=== PATIENT | male | born 1985 | race Caucasian/White ===

== ENCOUNTER 2023-10-25 22:08 | Emergency (ER) | payer OTHER ==
[2023-10-25 22:34] VITALS: O2SAT 97
--- NOTE | 2023-10-25 23:54 | ED Physician Documentation ---
PD HPI UPPER EXT INJURY - Stated complaint Stated Complaint: L HAND FINGER LAC - Chief complaint Chief Complaint: Laceration - History obtained from History obtained from: Patient - Additonal information Additional information: HPI from patient. Patient is right hand dominant. Patient was at home preparing dinner (specifically cutting onions with a knife) when the knife slipped causing a laceration to the tip of his left ring finger. Denies numbness, weakness. His chief concern is not the extent of the injury but the persistence of bleeding even after applying a hemostatic agent (powder) at home. Patient says he is UTD on tetanus immunization PD PAST MEDICAL HISTORY - Past Medical History Past Medical History: Yes Cardiovascular: Hypertension Respiratory: None Neuro: None Endocrine/Autoimmune: None GI: None : None HEENT: None Psych: Depression Musculoskeletal: None Derm: None - Past Surgical History Past Surgical History: Yes Ortho: Other - Present Medications Home Medications: Ambulatory Orders Medication Instructions Recorded Confirmed Lisinopril [Zestril] 20 mg PO DAILY 10/25/23 Sertraline [Zoloft] 25 mg PO DAILY 10/25/23 - Allergies Allergies/Adverse Reactions: Allergies Allergy/AdvReac Type Severity Reaction Status Date / Time No Known Drug Allergies Allergy Verified 10/25/23 22:32 - Social History Does the pt smoke?: No Smoking Status: Never smoker Does the pt drink ETOH?: Yes Does the pt have substance abuse?: No - Immunizations Immunizations are current?: Yes - POLST Patient has POLST: No PD ED PE NORMAL - Vitals Vital signs reviewed: Yes - General General: Alert and oriented X 3, No acute distress PD ED PE EXPANDED - Extremities ROMEL UE/Hands Visual: 1 - laceration (1 cm length laceration with brisk, non-pulsatile bleeding. The defect is wedge-shaped and wound edges cannot be approximated as a result.) Results - Vitals Vitals: Vital Signs - 24 hr 10/25/23 10/26/23 22:27 00:52 Temperature 37.0 C Heart Rate 65 68 Respiratory 16 16 Rate Blood Pressure 124/72 122/75 O2 Saturation 97 97 Oxygen O2 Source Room air PD Medical Decision Making - ED course Complexity details: considered differential, d/w patient ED course: As noted under the physical exam (above), the laceration is wedge-shaped, preventing approximation of the wound edges. Thus, the plan is to allow the wound to heal by secondary intention. The depth is just enough to show a small amount of underlying adipose tissue. Initially, patient was being prepared for discharge after ED RN placed Surgifoam over the laceration followed by gauze and Coban wrap. However, the gauze and Coban rapidly had moderate amount of blood on them, evidencing ongoing bleeding. Thus, I reevaluated the patient, removed the dressing and the Surgifoam, placed finger tourniquet at the base of the finger (Tourni-Cot product) which effected complete hemostasis. Two layers of Dermabond (with adequate drying time between layers) placed on the wound not for wound closure but for hemostasis. After adequate drying time, the tourniquet was removed and bleeding did not reoccur. Patient instructed to follow-up with PCP within the next few days for reevaluation of the wound. Return precautions discussed. Departure - Departure Disposition: 01 Home, Self Care Clinical Impression: Laceration Condition: Good Instructions: ED Laceration Amputation Finger Tip Open Tx Follow-Up: ARABELLA Bhandari [Provider Group] Comments: Follow-up with your PCP at [facility] in 2 to 3 days for recheck of the wound. Discharge Date/Time: 10/26/23 00:52
[2023-10-26 00:57] VITALS: BP 122/75
== END 2023-10-26 00:52 | disposition home or self-care (01) ==
LOC: ED 22:08
DX: S61.215A Laceration without foreign body of left ring finger without damage to nail, initial encounter (principal); W26.0XXA Contact with knife, initial encounter; Y93.G1 Activity, food preparation and clean up; Y92.009 Unspecified place in unspecified non-institutional (private) residence as the place of occurrence of the external cause
CPT/HCPCS: 99282; 99283